=== PATIENT | female | born 1980 | race Caucasian/White ===

== ENCOUNTER → 2016-08-13 | Outpatient (CLI) | payer BC ==
--- NOTE | ~2016-08-13 | ENPV ---
Vascular Upper Extremities Veins Procedure Demographics Patient Name TIKI ESPANA Date of Study 08/13/2016 Patient Number [id number] Gender Female Date of 1980 Age 36 Visit Number [id number] Height Accession Number [id number] Weight Room Number BSA BMI Referring Interpreting Chucho Vaughn MD Physician Physician Physician Ordering Physician Eric Li Building Mover Sound Tester Shelby Henry BS, RT Conclusions Summary The internal jugular, subclavian, axillary, brachial, radial and ulnar veins as well as the basilic and cephalic veins have been examined. There is acute deep vein thrombosis in the left upper extremity involving the brachial and basilic veins. Procedure Type of Study: Veins:Upper Extremities Veins, Upper Extremity Left. Indications for Study:Arm swelling. Patient Status:Routine. Study Location:Vascular Lab. Technical Quality:Adequate visualization. Velocities are measured in cm/s ; Diameters are measured in cm Right UE Vein Measurements 2D and Doppler Measurements + + + + +--------+ + !Location !Visualized !Compressibility !Thrombosis !Signal !Reflux ! + + + + +--------+ + !IJV !Yes !Yes !None !Phasic ! ! + + + + +--------+ + Left UE Vein Measurements 2D and Doppler Measurements + + + + + +---------+ !Location !Visualized !Compressibility !Thrombosis !Signal !Reflux ! + + + + + +---------+ !IJV !Yes !Yes !None !Phasic !No ! + + + + + +---------+ !SCV !Yes !Yes !None !Phasic !No ! + + + + + +---------+ !Innominate !Yes !Yes !None !Phasic !No ! + + + + + +---------+ !Axillary !Yes !Yes !None !Phasic !No ! + + + + + +---------+ !Brachial !Yes !No !Acute !Absent !No ! + + + + + +---------+ !Radial !Yes !Yes !None !Phasic !No ! + + + + + +---------+ !Ulnar !Yes !Yes !None !Phasic !No ! + + + + + +---------+ !Basilic !Yes !No !Acute !Diminished !No ! + + + + + +---------+ !Cephalic !Yes !Yes !None !Phasic !No ! + + + + + +---------+ Signature dtt: TATYANA SANTIZO dtd: 08/13/16 0924 Physician Self Edit
== END | disposition disaster alternative care site (69) ==
LOC: GCAR 09:00
DX: M79.602 Pain in left arm (principal); I82.622 Acute embolism and thrombosis of deep veins of left upper extremity; M79.89 Other specified soft tissue disorders